=== PATIENT | male | born 1945 | race African-American/Black ===

== ENCOUNTER 2016-09-09 14:55 | Observation (INO) ==
[2016-09-09] MEDS ORDERED: PANTOPRAZOLE 40 MG VIAL IV STA (15:22)
--- NOTE | 2016-09-09 15:30 | Emergency Department Note ---
Darin Ellington Meredith, am scribing for, and in the presence of, Jose Dial MD 15: 21. Yojana Ellington James D, MD, personally performed the services described in this documentation, ascribed by Lizbet Webster in my presence, and it is both accurate and complete 529 . Arrival - Arrival ED Nursing Triage Note: Pt c/o blood in his stool since 2-6 pt was admitted to the hospital last wk but still having dark red blood in his stool sent by Dr Rubio to the ER for eval. Mode of Arrival: Ambulatory Limitations: No Limitations Source: Patient, Old Records Reviewed, RN Notes Reviewed - History of Present Illness Onset (ago): week(s) <Jose Dial - Last Filed: 09/09/16 15:29> - History of Present Illness Onset (ago): week(s) (onset 2 weeks ago) <Fortino Banks - Last Filed: 09/09/16 16:08> - Arrival Chief Complaint: GI Bleed/Rectal Time Seen by Provider: 09/09/16 15:19 - History of Present Illness HPI Narrative: Pt is a 71 y/o black male reporting to the ED with c/o blood in his stool since 08/30/16. He was admitted to the hospital last week but is still having dark red blood in is stool. Pt denies any nausea or vomiting. He was sent to the ED today by Dr. Alcantar for further evaluation. Pt has a history of HTN and GI bleed. (Lizbet Webster) Pt is a 71 y/o black male reporting to the ED with c/o blood in his stool since 08/30/16. He was admitted to the hospital last week but is still having dark red blood in is stool. Pt denies any nausea or vomiting. He was sent to the ED today by Dr. Alcnatar for further evaluation. Pt has a history of HTN and GI bleed. (Jose Dial) Allergies/Adverse Reactions: Allergies Allergy/AdvReac Type Severity Reaction Status Date / Time No Known Allergies Allergy Verified 08/31/16 21:10 Home Medications: Home Medications Medication Instructions Recorded Confirmed Type Anastrozole 1 mg PO MO 08/31/16 08/31/16 History Carvedilol [Coreg] 25 mg PO BID 08/31/16 08/31/16 History Cholecalciferol [Vitamin D3] 1,000 unit PO DAILY 08/31/16 08/31/16 History Ferrous Gluconate 324 mg PO DAILY 08/31/16 08/31/16 History Furosemide Tab [Lasix Tab] 40 mg PO DAILY 08/31/16 08/31/16 History Gabapentin 300 mg PO TID 08/31/16 08/31/16 History Losartan Potassium 100 mg PO DAILY 08/31/16 08/31/16 History Tamsulosin [Flomax] 0.4 mg PO DAILY 08/31/16 08/31/16 History Pantoprazole Tab [Protonix Tab] 40 mg PO DAILY #30 tablet 09/05/16 Rx Review of System - Review of System 12 point system: reviewed and no additional remarkable complaints except as stated - Review of System Gastrointestinal: Present: as per HPI, other (dark red blood in the stool ). Absent: nausea, vomiting <Jose Dial - Last Filed: 09/09/16 15:29> Medical,Surgical,& Family Hx - Medical History Cardio: History of: Hypertension Gastrointestinal: History of: Gastrointestinal Bleed (2011) - Surgical History Abdominal Surgeries: Surgical HX of: EGD (2011) - Family History Family History: Denies;: Additional Family History - Social History Smoking Status: Never smoker <Jose Dial - Last Filed: 09/09/16 15:29> Exam <Jose Dial - Last Filed: 09/09/16 15:29> <Fortino Banks - Last Filed: 09/09/16 16:08> Physical Examination: GENERAL: This is a well-nourished, well-developed black male in no apparent distress. VITAL SIGNS: Temperature: 98.1, Pulse: 71, Respirations: 137/86, O2 Saturation: 97 HEENT: Head is normocephalic and atraumatic. Pupils are equally round and reactive to light. Extraocular movement are intact. Pale conjunctiva. Oropharynx is benign with moist mucous membranes. NECK: Neck is soft and supple without tenderness. There are no masses. There is no lymphadenopathy. LUNGS: Lungs are clear to auscultation bilaterally. Chest rises symmetrically. There is no chest wall tenderness. CV: Heart is regular rate and rhythm without murmurs, rubs, or gallops. ABDOMEN: Abdomen is soft, non-tender to palpation. There are no abnormal masses palpated. There is no organomegaly. Bowel sounds are present and active. SKIN: Skin is warm and dry. No rash. EXTREMITIES: Patient has full range of motion without tenderness. There is no pedal edema. NEUROLOGIC: Awake, alert, and oriented x4. Cranial nerves II through XII are grossly intact. There are no motorsensory deficits. PSYCHIATRIC: Normal affect. Normal mood. (Lizbet Webster) GENERAL: This is a well-nourished, well-developed black male in no apparent distress. VITAL SIGNS: Temperature: 98.1, Pulse: 71, Respirations: 137/86, O2 Saturation: 97 HEENT: Head is normocephalic and atraumatic. Pupils are equally round and reactive to light. Extraocular movement are intact. Pale conjunctiva. Oropharynx is benign with moist mucous membranes. NECK: Neck is soft and supple without tenderness. There are no masses. There is no lymphadenopathy. LUNGS: Lungs are clear to auscultation bilaterally. Chest rises symmetrically. There is no chest wall tenderness. CV: Heart is regular rate and rhythm without murmurs, rubs, or gallops. ABDOMEN: Abdomen is soft, non-tender to palpation. There are no abnormal masses palpated. There is no organomegaly. Bowel sounds are present and active. SKIN: Skin is warm and dry. No rash. EXTREMITIES: Patient has full range of motion without tenderness. There is no pedal edema. NEUROLOGIC: Awake, alert, and oriented x4. Cranial nerves II through XII are grossly intact. There are no motorsensory deficits. PSYCHIATRIC: Normal affect. Normal mood. (Jose Dial) Vital Signs: Vital Signs Temperature 98.1 F 09/09/16 14:58 Pulse Rate 71 09/09/16 14:58 Respiratory Rate 18 09/09/16 14:58 Blood Pressure 137/86 09/09/16 14:58 O2 Sat by Pulse Oximetry 97 09/09/16 14:58 Course - Consultations Time: 15:30 <Jose Dial - Last Filed: 09/09/16 15:29> <Fortino Banks - Last Filed: 09/09/16 16:08> - Consultations Consultation #1: Discussed with Dr. Alcantar. (Jose Dial) Results - Labs CBC & BMP: 09/09/16 15:18 09/09/16 15:18 <Fortino Banks - Last Filed: 09/09/16 16:08> Disposition Case discussed with: patient <Jose Dial - Last Filed: 09/09/16 15:29> <Fortino Banks - Last Filed: 09/09/16 16:08> Clinical Impression: GI bleed, Anemia
[2016-09-09] MEDS ORDERED: PANTOPRAZOLE 40 MG VIAL IV ONE (15:35)
[2016-09-09 15:36] LABS: Basophils % 0.2 % (0.0-0.8); Hematocrit 24.2 VOL% (42.0-52.0); Hemoglobin 7.7 GM/DL (14.0-18.0); Immature Granulocytes % 0.2 %; Immature Granulocytes Absolute 0.01 #; Lymphocytes # 1.2 10*3/uL (1.4-4.0); Lymphocytes % 24.8 % (21.2-54.2); Mean Corpuscular HGB Conc 31.8 GM/DL (32-36); Mean Corpuscular Hemoglobin 29 PG (27-34); Mean Corpuscular Volume 90.3 FL (87-102); Monocytes # 0.3 10*3/uL (0.11-0.8); Monocytes % 5.1 % (1.7-12.7); Neutrophils # 3.4 10*3/uL (1.4-7.4); Neutrophils % 69.7 % (38.7-73.9); Platelet Count 198 T/CUMM (130-400); Red Blood Count 2.68 MC/CUMM (3.8-5.5); Red Cell Distribution Width 14.1 % (9.3-17.3); White Blood Count 4.9 T/CUMM (4-12)
[2016-09-09 15:48] LABS: PT Patient Result 10.7 SECS; Partial Thromboplastin Time 24.7 SECS (0-40)
--- NOTE | 2016-09-09 15:48 | XRay Report ---
Exam: XR abdomen 2V Date: 09/09/2016 3:23 PM Comparison: 08/31/2016 Indication: Generalized abdominal pain Technique:[Supine and erect abdomen] Findings: Persistent mild gaseous distention of the bowel with no free air. Persistent increased fecal material in the colon. Degenerative changes are noted. Impression: Persistent mild gaseous distention of the bowel which could be related to ileus, increased fecal material, etc. PROCEDURE INTERPRETED AT [facility] DEPARTMENT OF RADIOLOGY Final Report Signed by: Dr. Emma Campbell
[2016-09-09 16:04] LABS: Alanine Aminotransferase 16 U/L (16-61); Albumin 3.2 G/DL (3.4-5.0); Alkaline Phosphatase 73 U/L (45-117); Aspartate Amino Transferase 20 U/L (0-37); Bilirubin,Total < 0.39 MG/DL (0.2-1.0); Blood Urea Nitrogen 17 MG/DL (7-18); Calcium 8.4 MG/DL (8.5-10.1); Glucose 90 MG/DL (74-106); Osmolality,Calculated 289.7 MOS/KG (273-304); Sodium 145 MMOL/L (136-145); Total Protein 6.5 G/DL (6.4-8.3)
--- NOTE | 2016-09-09 17:54 | Nuclear Medicine Report ---
History: GI bleed Date: 09/09/2016 Study: Nuclear medicine GI bleeding study Comparison exam: No previous Tagged red blood cell study was used performing 25 mCi technetium 99m PYP tagged red blood cells in vivo. Flow images were obtained immediately. Dynamic images were obtained over 60 minutes. Flow images are normal with visualization of the major vascular structures and major upper abdominal organs. There is activity in the stomach related to free pertechnetate. There is no tubular intestinal activity of a progressive nature to suggest active GI bleeding. There is some prominent blood pool activity within the genitalia. There is physiologic activity within the bladder. Impression: No active GI bleeding noted during the course of the study . PROCEDURE INTERPRETED AT [facility] DEPARTMENT OF RADIOLOGY Final Report Signed by: Dr. Ruth Gonzalez
[2016-09-09] MEDS ORDERED: ONDANSETRON 4 MG/2 ML VIAL IV PRN ×2 (18:32→20:07)
[2016-09-09] MEDS ORDERED: ACETAMINOPHEN 325 MG TABLET PO PRN (18:32)
--- NOTE | 2016-09-09 18:56 | Pulmonology History & Physical ---
Assessment and Plan (1) Lower gastrointestinal hemorrhage Status: Acute Assessment and plan: Patient admitted for lower GI bleeding this been going on now for the week he's been home my plan is to transfuse 2 units of packed red blood cells tonight and see how the patient does Dr. Bullock is guarded talked about of the ER about the patient was admitted for an EGD in the morning. I will consult GI get serial H& H's and watching carefully Current Visit: No Review of systems: Constitutional: No fatigue or fever Eyes: No loss of vision or blurred vision Ears: No decreased hearing no ear pain Mouth no lip swelling or sore throat Cardiovascular no chest pain no claudication Respiratory no cough or shortness of breath GI see hpi : No urinary frequency or hesitancy musculoskeletal: No Arthralgias or back pain Psychiatric: Confusion memory loss Endocrine: No polydipsia or polyuria Hematology: No easy bleeding or bruising 12 point review of systems otherwise unremarkable History of Present Illness Chief complaint: lower gastrointestinal bleed History of present illness: Mr. Jimenez is a 71 year old male who was just in the hospital and discharged on TuesdaySeptember [address] Dr. Alcantar seen him and felt like he could go home when he had a stable hematocrit. Hematocrit was apparently 30 at discharge. Since he went home he continued to have some dark melanotic stools and also complained of some right red blood that came with his stool when he had a bowel movements almost daily. He denies any fever or chills. Workup in the emergency room clean and negative scan for bleeding. Hematocrit is gone from 31-24. His BUN/creatinine are normal he's having no pain no shortness of breath fever chills or other complaints nothing seems to make this better or worse Home Medications Medication Instructions Recorded Confirmed Type Anastrozole 1 mg PO MO 08/31/16 08/31/16 History Carvedilol [Coreg] 25 mg PO BID 08/31/16 08/31/16 History Cholecalciferol [Vitamin D3] 1,000 unit PO DAILY 08/31/16 08/31/16 History Ferrous Gluconate 324 mg PO DAILY 08/31/16 08/31/16 History Furosemide Tab [Lasix Tab] 40 mg PO DAILY 08/31/16 08/31/16 History Gabapentin 300 mg PO TID 08/31/16 08/31/16 History Losartan Potassium 100 mg PO DAILY 08/31/16 08/31/16 History Tamsulosin [Flomax] 0.4 mg PO DAILY 08/31/16 08/31/16 History Pantoprazole Tab [Protonix Tab] 40 mg PO DAILY #30 tablet 09/05/16 Rx Allergies Allergy/AdvReac Type Severity Reaction Status Date / Time No Known Allergies Allergy Verified 08/31/16 21:10 Medical,Surgical,& Family Hx - Medical History Cardio: History of: Hypertension Gastrointestinal: History of: Gastrointestinal Bleed (2011) - Surgical History Surgical History: noncontributory Abdominal Surgeries: Surgical HX of: EGD (2011) - Family History Family History: noncontributory Family History: Denies;: Additional Family History - Social History Smoking Status: Never smoker Results - Labs CBC & BMP: 09/09/16 15:18 09/09/16 15:18 Quality Measures - VTE Contraindication to Pharmacological VTE Prophylaxis: Active Bleeding Exam (Pulmonay) H&P - Constitutional Vitals: Period Temp Pulse Resp BP Sys/Lara Pulse Ox Last 24 Hr 98.1 F 71 18 137/86 97 Exam: Constitutional: Patient in no apparent distress. Eyes: Conjunctivae and lids are normal Pupils equal round react to light and accommodation irises are normal HEENT: External ears and nose without lesions masses or scarring Oropharynx without erythema exudates or thrush Neck is supple without masses no jugular venous distention Lungs: Lungs are clear to auscultation and resonant percussion Cardiovascular: Heart auscultation regular rate and rhythm without murmur rub or gallop PMI in the midclavicular line by palpation carotid arteries 2+ without bruits bowel abdomen: Bowel sounds normoactive no masses no rebound or regular tenderness no organomegaly Lymphatic: No anterior posterior cervical or axillary adenopathy Musculoskeletal: No active synovitis no malalignment of the joints good range of motion of upper and lower extremities Skin : normal to inspection and palpation Neurologic: Cranial nerves II through XII intact motor sensory intact DTRs 2+ negative cerebellar signs Psychiatric: Oriented to person place and time normal memory normal mood and affect normal judgment
[2016-09-09] MEDS ORDERED: ALBUTEROL 2.5 MG/3 ML NEB RESP TX PRN (20:07)
[2016-09-09] MEDS ORDERED: SODIUM CHLORIDE 0.9% 250 ML IV PRN (20:07)
[2016-09-09] MEDS ORDERED: PANTOPRAZOLE 40 MG VIAL IV SCH (21:00)
[2016-09-09 22:39] LABS: Hematocrit 22.6 VOL% (42.0-52.0); Hemoglobin 7.2 GM/DL (14.0-18.0)
[2016-09-09] MEDS: SODIUM CHLORIDE 0.45% 1,000 ML IV SCH (23:50)
[2016-09-09] MEDS: PANTOPRAZOLE 40 MG VIAL IV SCH (23:52)
--- NOTE | 2016-09-10 09:11 | Gastrointestinal Progress Note ---
Assessment and Plan (1) GI bleed Status: Acute Assessment and plan: The patient is starting to have dark stools and after his discharge from the hospital on 09/05/16 he was started on his daily aspirin but also received some low back 7.5 mg per day. The combination of these 2 may have worsened erosive gastritis/produce peptic ulcer disease which has resulted in his hematocrit drop to its present level. We did not perform upper endoscopy on his previous visit and we will perform this today. I will note that the patient's previous colonoscopy didn't include an evaluation of the terminal ileum which did not appear to be bloody/stained with heme. Currently the patient's hematocrit is 22.6%, he may be able to go home tomorrow once the endoscopy is completed and he is tolerating by mouth intake. He will likely require Protonix at least once or twice daily. Current Visit: Yes (2) Nonspecific colitis Status: Acute Assessment and plan: This patient had a self-limited colitis seen on biopsies, this is producing minimal effects and his intestine at this point. We can consider treatment with Cipro or other antibiotics that he is continuing to have diarrhea once the melena is controlled. Current Visit: Yes (3) Acute blood loss anemia Status: Acute Assessment and plan: We will continue to observe the patient after the upper endoscopy today to see if further transfusion will be required after these initial 2 units. I suspect he might need yet another unit on top of the ones that he has gotten if his hematocrit continues to drift downward. If no significant findings on upper endoscopy would hold off on reevaluation with colonoscopy and simply flushing out with some additional MiraLAX. Please scanned obtained yesterday does not show any active bleeding. Current Visit: No Gastroenterology - PN: Subj Interval history: Patient was seen last week with what thought to be a lower GI bleed possibly associated with diverticulosis-- please see my consultation on 09/01/16 for full details. The patient proved to have a mild self-limited colitis throughout the colon and did not evidence any gross active bleeding time. He was discharged from the hospital but unfortunately continued to bleed after going back on his aspirin each day. In addition his primary care provider have provided him with some aerobic which she had taken to knee pain on the right side. The patient started having darker stools and had not undergone previous upper endoscopy. He is having some mild GI distress in his epigastrium. We will be taking him to upper endoscopy today to see if there is actually ulceration/erosion here that might be accounting for the dark stools and drop in his hematocrit to 31.6 --> 22.6%. He has not had any nausea or vomiting. His pain is improved with the Mobic, he is quite hungry this morning. The stools are not jet black, just a deep maroon. He is feeling less pain on the Protonix twice daily. Exam (Progress Note) - Constitutional Vitals: Period Temp Pulse Resp BP Sys/Lara Pulse Ox Last 24 Hr 97.3 F-98.5 F 57-63 18-20 125-159/66-86 98-100 General appearance: no acute distress - Head Head exam: Present: normocephalic, atraumatic - Eye Eye exam: Present: EOMI Pupils: Present: CASSY - ENT ENT exam: Present: normal exam - Respiratory Respiratory exam: Present: clear to auscultation bilaterally. Absent: rhonchi, stridor, wheezes - Cardiovascular Cardiovascular exam: Present: regular rate and rhythm - GI/Abdominal GI/Abdominal exam: Present: normal bowel sounds, tenderness (mild tenderness in the epigastric region), soft. Absent: distended, guarding, rebound - Neurological Exam Neurological exam: Present: alert, oriented X3, CN II-XII intact. Absent: motor sensory deficit - Psychiatric Psychiatric exam: Present: normal affect, normal mood - Skin Skin exam: Present: warm Results - Labs CBC & BMP: 09/09/16 21:29 09/09/16 15:18
[2016-09-10] MEDS: PANTOPRAZOLE 40 MG VIAL IV SCH ×2 (09:27→21:14)
[2016-09-10 09:32] LABS: Basophils % 0.3 % (0.0-0.8); Eosinophils # 0.1 10*3/uL (0.0-0.87); Eosinophils % 1.5 % (0.00-10.9); Hematocrit 29.9 VOL% (42.0-52.0); Immature Granulocytes % 0.3 %; Immature Granulocytes Absolute 0.01 #; Lymphocytes # 1.2 10*3/uL (1.4-4.0); Lymphocytes % 29.8 % (21.2-54.2); Mean Corpuscular HGB Conc 31.8 GM/DL (32-36); Mean Corpuscular Hemoglobin 29 PG (27-34); Mean Corpuscular Volume 91.7 FL (87-102); Mean Platelet Volume 10.2 FL (9.6-12.0); Monocytes # 0.3 10*3/uL (0.11-0.8); Monocytes % 6.7 % (1.7-12.7); Neutrophils # 2.4 10*3/uL (1.4-7.4); Neutrophils % 61.4 % (38.7-73.9); Red Cell Distribution Width 13.8 % (9.3-17.3); White Blood Count 3.9 T/CUMM (4-12)
[2016-09-10 09:36] LABS: Hemoglobin 9.5 GM/DL (14.0-18.0); Platelet Count 157 T/CUMM (130-400); Red Blood Count 3.26 MC/CUMM (3.8-5.5)
--- NOTE | 2016-09-10 09:46 | EKG Report ---
Stationary ECG Study [facility] Test Date: 09/10/2016 9:46:08 AM Pat Name: LEA KENDRICK Department: Room: 528 Gender: M Oil Driller: : 1945 Requested by: Emma Caban Order Number: [id number] Reading MD: ELLE ALMANZA Intervals [place] Rate: 62 P: 74 CT: 174 QRS: 46 QRSD: 98 T: 43 QT: 423 QTc: 429 Interpretive Statements SINUS RHYTHM Electronically Signed On 09-14-16 11:09:48 [employer]ING ENGINEERING TECHNOLOGIST by ELLE ALMANZA [email or web address]
[2016-09-10] MEDS ORDERED: PROPOFOL 200 MG/20 ML VIAL IV ONE (09:55)
[2016-09-10] MEDS ORDERED: LIDOCAINE 2% 5 ML VIAL ONE (09:55)
[2016-09-10 10:01] LABS: Calcium 8.2 MG/DL (8.5-10.1); Osmolality,Calculated 288.7 MOS/KG (273-304)
--- NOTE | 2016-09-10 10:09 | Operative Note ---
Date of procedure: 09/10/16 Pre-op diagnosis: hematocrit 22.6%, melena, aspirin/Mobic use. Post-op diagnosis: other (Relatively normal-appearing EGD with a 1 cm hiatal hernia and mild salt and pepper erythema with a single small erosion-- findings unlikely to have precipitated the anemia seen in this patient. This may be ongoing lower GI bleeding proximally. If ongoing bleeding and noted making certainly consider doing capsule endoscopy as an outpatient as our next test of choice.) Procedure: PROCEDURE: Esophagogastroduodenoscopy (EGD) with cold biopsy for pathology REFERRING PHYSICIAN: Dr. Brody Aguilar M.D. INDICATIONS: Hematocrit down to 22.6%, dark stools, recent use of aspirin and Mobic in a patient we have been discharged from the hospital on 09/05/16 back with weakness and ongoing bleeding. The prior H&P was reviewed and interrim changes are as noted: No change from previous GI consultation on ENDOSCOPIST: Kobe Alcantar MD ENDOSCOPE: Olympus Video 100 System upper endoscope ASA CLASS: 3 EXAM: CV: regular rate and rhythm Respiratory: Clear without wheezes Abdominal: active bowel sounds MEDICATION: Per nursing anesthesia protocol, see their notes PROCEDURE: After discussion of the potential risks and benefits of upper endoscopy, the informed consent was obtained. The patient was then placed in the left lateral decubitus position where sedation was achieved as noted above. Esophageal intubation was performed without difficulty, and the endoscope was advanced through the esophagus, stomach and duodenum. A slow withdrawal was then performed with retroflexion in the stomach for careful inspection of the incisura angularis, fundus and cardia. The scope was then returned to a neutral position and withdrawn through the esophagus. The patient tolerated the procedure well and without complication. BIOPSIES: Gastric antrum/body PHOTOGRAPHS: Obtained FINDINGS: Hypopharynx and Larynx: Normal Esohagoscopy Upper and middle thirds: Normal Lower third normal Esophogastric junctions: Normal Gastroscopy: Cardia/Fundus: 1 cm hiatal hernia noted Body: Mild patchy salt and pepper erythema, biopsied Antrum and pylorus single small erosion, biopsied, with salt and pepper erythema noted no gross evidence of blood/ulcer Duodenoscopy: Bulb minimal duodenitis, no ulcer, no bleeding lesion to explain the drop in hematocrit to 22.6 % Second and third portions: Normal IMPRESSION: Relatively normal-appearing EGD with a 1 cm hiatal hernia and mild salt and pepper erythema with a single small erosion-- findings unlikely to have precipitated the anemia seen in this patient. This may be ongoing lower GI bleeding proximally. If ongoing bleeding and noted making certainly consider doing capsule endoscopy as an outpatient as our next test of choice. RECOMMENDATIONS: Follow up for biopsy results in 1-2 weeks by phone [phone] Continue anti-gastroesophageal reflux measures (avoid carbonated and acidic beverages, avoid eating within 2 hours of bedtime, avoid tight fitting clothing , and elevate the front bed posts 6 inches prior to sleeping. Strongly suggest holding off on aspirin and Mobic for the next 2 weeks. Continue Protonix 40 mg prior to suppertime for at least the next month. The patient gave use Tylenol/Ultram combination for his joint pains in the interim. Observe hematocrit after transfusion of blood today. If he is stable consider discharge tomorrow morning. Kobe Alcantar MD COPY TO: Dr. rBody Aguilar M.D. Anesthesia: MAC Surgeon / Physician: Kobe Alcantar Estimated blood loss: minimal Specimens: other Condition: stable Disposition: post procedure unit Results - Labs CBC & BMP: 09/10/16 09:12 09/09/16 15:18 Discharge Plan - Discharge Medications No Action Tamsulosin [Flomax] 0.4 mg PO DAILY Losartan Potassium 100 mg PO DAILY Carvedilol [Coreg] 25 mg PO BID Pantoprazole Tab [Protonix Tab] 40 mg PO DAILY #30 tablet Anastrozole 1 mg PO MO Cholecalciferol [Vitamin D3] 1,000 unit PO DAILY - Follow Up or Referral - Forms/Instructions
[2016-09-10] MEDS ORDERED: traMADol 50 MG TABLET PO PRN (10:20)
--- NOTE | 2016-09-10 10:22 | Anesthesia ---
Anesthesia Post OP - Post Ansesthetic Evaluation Patient seen in post op: Yes Resp: within normal limits CV: within normal limits Mental: within normal limits Temp: within normal limits [id number]: within normal limits Nausea and Vomiting: within normal limits Pain: within normal limits
[2016-09-10 12:26] LABS: Hematocrit 27.3 VOL% (42.0-52.0); Hemoglobin 8.9 GM/DL (14.0-18.0)
--- NOTE | 2016-09-10 12:59 | Hospitalist Progress Note ---
Assessment and Plan (1) Lower gastrointestinal hemorrhage Status: Acute Assessment and plan: EGD showed 1 cm hiatal hernia, Mild patchy salt and pepper erythema, Antrum and pylorus single small erosion, biopsied, with salt and pepper erythema noted no gross evidence of blood/ulcer, minimal duodenitis, no ulcer, no bleeding lesion. May need capsule endoscopy. Current Visit: No (2) Acute blood loss anemia Status: Acute Assessment and plan: 2 units of PRBC and repeat hgb at 1500 Current Visit: No (3) Hypertension Status: Chronic Assessment and plan: restart coreg at lower dose at 6.25 mg po bid and restart losartan Current Visit: No Qualifiers: Hypertension type: essential hypertension Qualified Code(s): I10 - Essential (primary) hypertension Hospitalist: Subjective Interval history: Patient had already had his EGD today. He was admitted by Dr. Aguilar last night for lower GI bleed and already received 2 units of packed red blood cells. Hemoglobin is 8 today. Still smell the blood during my examination. Exam - Constitutional Vitals: Period Temp Pulse Resp BP Sys/Lara Pulse Ox Last 24 Hr 97.1 F-98.5 F 57-64 16-20 125-178/66-89 97-100 Exam: Heart Rate-[RRR] Lungs-[CTAB] GI-[+bs soft, NT] Ext-[no edema] Neuro-motor 5 out of 5, alert and oriented times 3 psych normal mood and affect general no acute distress Results - Labs CBC & BMP: 09/10/16 11:43 09/10/16 09:12 Lab Results: I have reviewed the past 24 hour labs - Diagnostic Findings Procedure: X-ray: report reviewed by me (Nuclear medicine bleeding scan was negative) Quality Measures - VTE Contraindication to Pharmacological VTE Prophylaxis: Active Bleeding
[2016-09-10] MEDS: TAMSULOSIN 0.4 MG CAPSULE PO SCH (14:55)
[2016-09-10] MEDS: SODIUM CHLORIDE 0.45% 1,000 ML IV SCH ×2 (16:30→16:33)
[2016-09-10] MEDS: CARVEDILOL 6.25 MG TABLET PO SCH (21:04)
[2016-09-11] MEDS: SODIUM CHLORIDE 0.45% 1,000 ML IV SCH (02:13)
[2016-09-11 06:13] LABS: Basophils % 0.3 % (0.0-0.8); Eosinophils # 0.2 10*3/uL (0.0-0.87); Eosinophils % 4.7 % (0.00-10.9); Hematocrit 26.3 VOL% (42.0-52.0); Hemoglobin 8.6 GM/DL (14.0-18.0); Immature Granulocytes % 0.9 %; Immature Granulocytes Absolute 0.03 #; Lymphocytes # 1.1 10*3/uL (1.4-4.0); Lymphocytes % 31.9 % (21.2-54.2); Mean Corpuscular HGB Conc 32.7 GM/DL (32-36); Mean Corpuscular Hemoglobin 30 PG (27-34); Mean Corpuscular Volume 91.6 FL (87-102); Mean Platelet Volume 9.5 FL (9.6-12.0); Monocytes # 0.3 10*3/uL (0.11-0.8); Neutrophils # 1.8 10*3/uL (1.4-7.4); Neutrophils % 54.2 % (38.7-73.9); Platelet Count 151 T/CUMM (130-400); Red Blood Count 2.87 MC/CUMM (3.8-5.5); Red Cell Distribution Width 14.2 % (9.3-17.3); White Blood Count 3.4 T/CUMM (4-12)
[2016-09-11 07:41] VITALS: BP 145/84
[2016-09-11] MEDS: PANTOPRAZOLE 40 MG VIAL IV SCH (08:15)
[2016-09-11] MEDS: CARVEDILOL 6.25 MG TABLET PO SCH (08:16)
[2016-09-11] MEDS: TAMSULOSIN 0.4 MG CAPSULE PO SCH (08:16)
[2016-09-11] MEDS ORDERED: CHOLECALCIFEROL 1,000 UNIT TABLET PO SCH (09:00)
[2016-09-11] MEDS ORDERED: LOSARTAN 50 MG TABLET PO SCH (09:00)
[2016-09-11] MEDS ORDERED: BISACODYL 5 MG TABLET PO ONE (10:38)
--- NOTE | 2016-09-11 10:41 | Discharge Summary ---
Hospital Course - Hospital Course Hospital Course: 71-year-old black male with history of hypertension presents to the emergency room with complaints of black tarry stools. Was recently discharged from the hospital on the after he presented with a lower GI bleed. A colonoscopy was performed on 09/02/2016 which showed localized colitis in the transverse colon and gordon diverticulosis. A polyp was removed at that time and biopsied. Patient represents today with complaints of continued black tarry stools. His hemoglobin on admission was 7.7. He received 2 units of packed red blood cells and hemoglobin is stabilized at 8.6. EGD by Dr. Alcantar showed 1 cm hiatal hernia and patchy erythema in the body of the stomach. Patient also had mild duodenitis but no ulcers were noted. He also had some erythema in the antrum area. If patient continues to have problems with bleeding after avoiding NSAIDs and aspirin Dr. Alcantar recommends a capsule endoscopy. Patient will be discharged home today on Protonix with strict orders not to use any NSAIDs or aspirin. 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 I decreased the Coreg dose from 25 mg to 6.25 mg and then added Norvasc at night. I will need him to follow-up with his primary care doctor on his blood pressure next week. - Time spent with patient Time with patient DS: Less than 30 minutes Diagnosis - Discharge Diagnosis (1) Lower gastrointestinal hemorrhage Status: Acute (2) Acute blood loss anemia Status: Acute (3) Hypertension Status: Chronic Discharge Plan - Discharge Data Disposition: Disch To Home/Self Care Condition at Discharge: Stable Discharge Diet: heart healthy Activity: resume usual activities as tolerated Hygiene: no restrictions Weight Bearing at Discharge: full weight bearing - Discharge Medications New Carvedilol [Coreg] 6.25 mg PO BID #60 tablet amLODIPine [Norvasc] 5 mg PO BEDTIME #30 tablet traMADol TAB [Ultram] 50 mg PO QID PRN #0 tablet PRN Reason: joint pain Continue Tamsulosin [Flomax] 0.4 mg PO DAILY Losartan Potassium 100 mg PO DAILY Pantoprazole Tab [Protonix Tab] 40 mg PO DAILY #30 tablet Anastrozole 1 mg PO MO Cholecalciferol [Vitamin D3] 1,000 unit PO DAILY Discontinued Carvedilol [Coreg] 25 mg PO BID - Follow Up or Referral Follow Up: Kobe Alcantar MD [Physician] - 1 Week pmd, [Other] - 1 Week (blood pressure check ) - Forms/Instructions Exam - Constitutional Vitals: Period Temp Pulse Resp BP Sys/Lara Pulse Ox Last 24 Hr 97.1 F-98.0 F 54-68 14-19 133-170/71-88 97-99 General appearance: normal weight, no acute distress - Respiratory Respiratory exam: Present: clear to auscultation bilaterally. Absent: rhonchi, wheezes - Cardiovascular Cardiovascular exam: Present: regular rate and rhythm. Absent: systolic murmur - GI/Abdominal GI/Abdominal exam: Present: normal bowel sounds, soft. Absent: tenderness - Extremities Exam Extremities exam: Present: normal inspection, normal capillary refill Discharge Results Labs on day of discharge: Labs from last 24 hours 09/11/16 09/10/16 09/10/16 05:48 15:28 11:43 WBC 3.4 L RBC 2.87 L Hgb 8.6 L 9.5 L 8.9 L Hct 26.3 L 27.3 L MCV 91.6 MCH 30 MCHC 32.7 RDW 14.2 Plt Count 151 MPV 9.5 L Neut % (Auto) 54.2 Lymph % (Auto) 31.9 [place] % (Auto) 8.0 Eos % (Auto) 4.7 Baso % (Auto) 0.3 Neut # (Auto) 1.8 Lymph # (Auto) 1.1 L [place] # (Auto) 0.3 Eos # (Auto) 0.2 Baso # (Auto) 0.0 Immature Gran % 0.9 Nucleated RBC % 0.0 Immature Gran # 0.03 Nucleated RBCs # 0.00 DS: Provider Date of admission: 09/09/16 18:32 Primary care physician: . No PCP Attending physician on admission: Brody Aguilar MD Consults: 09/09/16 18:52 Consult to Pharmacy [CONS] Routine Reason for Pharmacy Consult: Adjust Meds Renal Funct 09/10/16 09:08 Consult to Anesthesiology [CONS] Routine Consulting Provider: Reason for Anesthesiology: Pre-op Clearance Discharging clinician: Carmela Guzman MD
[2016-09-13] MEDS ORDERED: ANASTROZOLE 1 MG TABLET PO SCH (13:00)
--- NOTE | 2016-09-13 13:01 | Pathology Report from [facility] ---
ACCESSION # : [id number] PATIENT NAME : Lea Kendrick ORDERING DR : Kobe Alcantar MD CLINICAL HX: GI bleed POST-OP DX: Same SPECIMEN INFO: NELIDA GROSS DESCRIPTION: Received in formalin labeled "LEA KENDRICK" consists of an aggregate of pink fong mucosal tissue measuring 0.9 x up to 0.5 cm submitted in one cassette. DIAGNOSIS FOR LEA KENDRICK: GASTRIC BIOPSIES: Chronic antral gastritis with focal intestinal metaplasia. H. pylori not seen on special stain. SERVICE DATE: 09/10/2016 REPORT DATE: 09/13/2016 PATHOLOGIST: Jacinto Rubio M.D. [facility]
== END 2016-09-11 13:52 | disposition home or self-care (01) ==
LOC: N.ED 14:55 → INTOOBSV 18:32 → N.EDINP 18:32 → N.5E 19:43
PROVIDERS: ADMIT Internal Medicine Pulmonary Disease; ATTEND Internal Medicine